=== PATIENT | female | born 1980 | race Caucasian/White ===

== ENCOUNTER 2019-11-09 17:17 | Emergency (ER) | payer OTHER, SELFPAY ==
[~2019-11-09] VITALS: Ht 162.6 cm; Wt 76.2 kg
[2019-11-09 17:31] VITALS: BP_SYST 116
--- NOTE | 2019-11-09 17:36 | NUR ---
Patient triaged and placed in waiting room. VSS and patient appears in no acute distress at this time. Accompanied by self , awaiting available bed, and MD notified of need for MSE.
--- NOTE | 2019-11-09 17:40 | NUR ---
Pt brought by self, A&Ox4, pt presents to ER with L flan /L abd pain, also c/o GERD with chest congestion and runny nose,pt states she had a fever yesterday,pt also noted small amount of blood in the urine, current temp 99.2, pt requesting test for covid , pt denies cough , respirations are even and unlabored, skin pink and warm, will cont to monitor.
[2019-11-09] MEDS ORDERED: KETOROLAC TROMETHAMINE 60 MG/2 ML VIAL IM ONE (18:00)
[2019-11-09 18:14] LABS: BILIRUBIN,URINE NEGATIVE (NEGATIVE); BLOOD, URINE 2+ (NEGATIVE); CLARITY/URINE CLEAR (CLEAR); COLOR,URINE YELLOW (YELLOW); GLUCOSE,URINE NEGATIVE (NEGATIVE); KETONES,URINE NEGATIVE (NEGATIVE); LEUKOCYTE ESTERASE ,URINE NEGATIVE (NEGATIVE); NITRITE, URINE NEGATIVE (NEGATIVE); PROTEIN URINE TRACE (NEGATIVE); UROBILINOGEN,URINE 0.2 (0.2-1.0)
--- NOTE | 2019-11-09 18:20 | NUR ---
Rosamaria Kenny UPSTAIRS MAID assessing patient in the tent
[2019-11-09 18:47] LABS: BACTERIA,URINE RARE /HPF (None Seen); MUCUS,URINE 1+ /LPF (None Seen); WBC,URINE 0-3 /HPF (0-3)
[2019-11-09 18:55] LABS: BASOPHILS # (AUTO) 0.1 K/uL (0.0-0.2); BASOPHILS % (AUTO) 1.5 % (0.0-2.0); EOSINOPHILS # (AUTO) 0.1 K/uL (0.0-0.4); EOSINOPHILS % (AUTO) 1.5 % (0.0-4.0); HEMATOCRIT 44.2 % (36-48); HEMOGLOBIN 14.4 g/dL (12.0-16.0); LYMPHOCYTES # (AUTO) 1.5 K/uL (1.0-5.5); LYMPHOCYTES % (AUTO) 30.8 % (20.5-51.5); MEAN CORPUSCULAR HEMOGLOBIN 29 pg (27-31); MEAN CORPUSCULAR HGB CONC 33 % (32-36); MEAN CORPUSCULAR VOLUME 87 fL (79.0-98.0); MONOCYTES # (AUTO) 0.4 K/uL (0.0-1.0); NEUTROPHILS # (AUTO) 2.8 K/uL (1.8-7.7); NEUTROPHILS % (AUTO) 58.2 % (40.0-70.0); PLATELET COUNT (AUTO) 272 K/uL (130-430); RED BLOOD CELL COUNT(AUTO) 5.06 MIL/uL (4.2-6.2); RED CELL DISTRIBUTION WIDTH 13.8 % (9.0-15.0); WHITE BLOOD COUNT (AUTO) 4.8 K/uL (4.8-10.8)
[2019-11-09 19:01] LABS: CALCIUM 8.8 mg/dL (8.4-11.0); CREATININE 1.19 mg/dL (0.55-1.30); POTASSIUM 3.4 mmol/L (3.5-5.1)
[2019-11-09 19:06] LABS: ALBUMIN 3.1 g/dL (3.4-4.8); TOTAL BILIRUBIN 0.2 mg/dL (0.0-1.0)
--- NOTE | 2019-11-09 19:45 | NUR ---
Pt A&Ox4, no s/s of distress, skin pink and warm, cap refill <3.
[2019-11-09 21:33] VITALS: BP_SYST 116
--- NOTE | 2019-11-09 21:35 | NUR ---
Patient given written and verbal discharge instructions and verbalizes understanding. ER MD discussed with patient the results and treatment provided. Patient in stable condition. ID arm band removed. Rx of Motrin and Tylenol given. Patient educated on pain management and to follow up with PMD. Pain Scale 0/10 . Opportunity for questions provided and answered. Medication side effect fact sheet provided.
--- NOTE | 2019-11-12 09:27 | NUR ---
Patient was notified by [facility] her COVID-19 "Not Detected" result and recommended to follow preventive measures ([place] [facility]). Patient verbalizes understanding.
== END 2019-11-09 21:33 | disposition home or self-care (01) ==
LOC: SED 17:17
DX: N23 Unspecified renal colic (principal); R03.0 Elevated blood-pressure reading, without diagnosis of hypertension; Z20.828 Contact with and (suspected) exposure to other viral communicable diseases
CPT/HCPCS: 36415; 74176; 80053; 81000; 81025; 83690; 84702; 85025; 96372; 99284; C9803; J1885; U0003

== ENCOUNTER 2020-04-14 08:50 | Outpatient (CLI) | payer OTHER ==
[2020-04-14 11:54] LABS: BASOPHILS # (AUTO) 0.1 K/uL (0.0-0.2); EOSINOPHILS # (AUTO) 0.1 K/uL (0.0-0.4); EOSINOPHILS % (AUTO) 0.6 % (0.0-4.0); HEMATOCRIT 43.4 % (36-48); HEMOGLOBIN 14.7 g/dL (12.0-16.0); LYMPHOCYTES # (AUTO) 3.1 K/uL (1.0-5.5); MEAN CORPUSCULAR HEMOGLOBIN 29 pg (27-31); MEAN CORPUSCULAR HGB CONC 34 % (32-36); MEAN CORPUSCULAR VOLUME 87 fL (79.0-98.0); MONOCYTES # (AUTO) 0.4 K/uL (0.0-1.0); MONOCYTES % (AUTO) 4.4 % (1.7-9.3); NEUTROPHILS # (AUTO) 6.2 K/uL (1.8-7.7); PLATELET COUNT (AUTO) 341 K/uL (130-430); RED BLOOD CELL COUNT(AUTO) 4.99 MIL/uL (4.2-6.2); RED CELL DISTRIBUTION WIDTH 13.7 % (9.0-15.0); WHITE BLOOD COUNT (AUTO) 9.9 K/uL (4.8-10.8)
[2020-04-14 12:12] LABS: BILIRUBIN,URINE NEGATIVE (NEGATIVE); BLOOD, URINE NEGATIVE (NEGATIVE); CLARITY/URINE CLEAR (CLEAR); COLOR,URINE YELLOW (YELLOW); GLUCOSE,URINE NEGATIVE (NEGATIVE); KETONES,URINE NEGATIVE (NEGATIVE); LEUKOCYTE ESTERASE ,URINE NEGATIVE (NEGATIVE); NITRITE, URINE NEGATIVE (NEGATIVE); PH,URINE 5.5 (5.0-8.0); PROTEIN URINE NEGATIVE (NEGATIVE); UROBILINOGEN,URINE 0.2 (0.2-1.0)
[2020-04-14 12:23] LABS: ALBUMIN 3.8 g/dL (3.4-4.8); CALCIUM 8.7 mg/dL (8.4-11.0); CREATININE 1.08 mg/dL (0.55-1.30); THYROID STIMULATING HORMONE 1.19 uIu/mL (0.36-3.74); TOTAL BILIRUBIN 0.6 mg/dL (0.0-1.0)
== END 2020-04-14 20:26 | disposition home or self-care (01) ==
LOC: SLB 08:50
PROVIDERS: ATTEND Internal Medicine
DX: Z00.00 Encounter for general adult medical examination without abnormal findings (principal)
CPT/HCPCS: 36415; 80053; 80061; 81003; 82306; 82607; 83036; 84443-TC; 84703; 85025

== ENCOUNTER → 2020-04-20 | Outpatient (CLI) | payer OTHER | END | disposition home or self-care (01) | LOC: SMI 12:11 | PROVIDERS: ATTEND Internal Medicine | DX: M54.2 Cervicalgia (principal); R51.9 Headache, unspecified | CPT/HCPCS: 70551; 72050-TC ==

== ENCOUNTER 2020-04-23 13:49 | Outpatient (CLI) | payer OTHER ==
[2020-04-25 09:06] LABS: ESTRADIOL 20.2 pg/mL (.); FOLLICLE STIMULATION HORMONE 5.4 mIU/mL (.); LUETENIZING HORMONE 3.4 mIU/mL (.)
== END 2020-04-23 19:29 | disposition home or self-care (01) ==
LOC: SLB 13:49
PROVIDERS: ATTEND Specialist
DX: N92.0 Excessive and frequent menstruation with regular cycle (principal)
CPT/HCPCS: 36415; 82670; 83001; 83002

== ENCOUNTER 2020-04-29 10:28 | Outpatient (CLI) | payer OTHER ==
[2020-04-30 08:06] LABS: ESTRADIOL 47.2 pg/mL (.); FOLLICLE STIMULATION HORMONE 6.6 mIU/mL (.); INSULIN 17.6 uIU/mL (2.6-24.9); LUETENIZING HORMONE 5.9 mIU/mL (.); PROLACTIN 9.8 ng/mL (4.8-23.3)
== END 2020-04-29 19:54 | disposition home or self-care (01) ==
LOC: SRD 10:28
PROVIDERS: ATTEND Specialist
DX: N92.6 Irregular menstruation, unspecified (principal); N97.9 Female infertility, unspecified
CPT/HCPCS: 36415; 74740; 82627; 82670; 83001; 83002; 83525; 84146; C1751; Q9967